=== PATIENT | male | born 1950 | race Caucasian/White ===

== ENCOUNTER 2023-10-28 13:40 | Emergency (ER) | payer OTHER, MEDICARE ==
[2023-10-28 14:01] VITALS: BP 142/68; PULSE 90
== END 2023-10-28 14:29 | disposition home or self-care (01) ==
LOC: LB.ED 13:40
DX: M72.2 Plantar fascial fibromatosis (principal); M19.90 Unspecified osteoarthritis, unspecified site; Z79.82 Long term (current) use of aspirin; Z79.899 Other long term (current) drug therapy
CPT/HCPCS: 73630-LT; 99283

== ENCOUNTER 2023-12-30 15:43 | Emergency (ER) | payer OTHER, MEDICARE ==
[2023-12-30] MEDS ORDERED: Sodium Chloride 0.9% 10 ML Syringe FLUSH PRN (16:15)
[2023-12-30 16:21] LABS: BASOPHILS ABSOLUTE AUTO 0.03 K/uL (0.02-0.10); BASOPHILS PERCENT AUTO 0.4 % (0.0-0.5); EOSINOPHILS ABSOLUTE AUTO 0.01 K/uL (0.04-0.40); EOSINOPHILS PERCENT AUTO 0.1 % (1.0-5.0); HEMATOCRIT 42.2 % (40.0-54.0); HEMOGLOBIN 14.2 g/dL (13.0-18.0); LYMPHOCYTES ABSOLUTE AUTO 0.73 K/uL (1.50-4.00); LYMPHOCYTES PERCENT AUTO 8.7 % (20.0-40.0); MEAN CORPUSCULAR HEMOGLOBIN 30.3 pg (27.0-32.0); MEAN CORPUSCULAR HGB CONC 33.6 g/dL (31.0-35.0); MEAN CORPUSCULAR VOLUME 90 fL (76-96); MONOCYTES ABSOLUTE AUTO 0.65 K/uL (0.20-0.80); MONOCYTES PERCENT AUTO 7.7 % (3.0-10.0); NEUTROPHILS ABSOLUTE AUTO 6.97 K/uL (2.00-7.50); NEUTROPHILS PERCENT AUTO 83.1 % (45.0-70.0); PLATELET COUNT,PLT 270 K/uL (150-400); RED BLOOD CELL COUNT 4.69 M/uL (4.50-6.50); RED CELL DISTRIBUTION WIDTH 13.5 % (11.0-16.0); WHITE BLOOD CELL COUNT,WBC 8.4 K/uL (4.0-11.0)
[2023-12-30 16:31] LABS: A/G RATIO 0.9 (0.8-2.0); ALANINE AMINOTRANSFERASE,ALT 41 U/L (12-78); ALBUMIN 3.6 g/dL (3.4-5.0); ALKALINE PHOSPHATASE 95 U/L (46-116); ANION GAP 13.9 mmol/L (5.0-15.0); ASPARTATE AMNIOTRANSFERASE,AST 18 U/L (15-37); BILIRUBIN TOTAL 0.5 mg/dL (0.0-1.0); BLOOD UREA NITROGEN,BUN 25 mg/dL (8-26); BUN/CREATININE RATIO 22.7 (6-25); CALCIUM 9.2 mg/dL (8.5-10.1); CARBON DIOXIDE,CO2 27.5 mmol/L (21.0-32.0); CHLORIDE,CL 100 mmol/L (98-107); ESTIMATED GFR 70 mL/min (>60); GLUCOSE RANDOM 128 mg/dL (74-100); POTASSIUM,K 4.4 mmol/L (3.5-5.1); PROTEIN TOTAL,TP 7.4 g/dL (6.4-8.2); SODIUM,NA 137 mmol/L (136-145)
[2023-12-30 16:54] LABS: INFLUENZA A NAA NEGATIVE (NEGATIVE); INFLUENZA B NAA NEGATIVE (NEGATIVE); RESPIRATORY SYNCYTIAL VIR NAA NEGATIVE (NEGATIVE)
[2023-12-30 16:57] LABS: CORONAVIRUS COVID-19 NAA POSITIVE (NEGATIVE)
[2023-12-30 21:10] VITALS: BP 143/70; PULSE 102
== END 2023-12-30 17:35 | disposition home or self-care (01) ==
LOC: LB.ED 15:43
DX: U07.1 COVID-19 (principal); Z79.899 Other long term (current) drug therapy
CPT/HCPCS: 0241U; 36415; 80053; 85025; 99285; A0425; A0428

== ENCOUNTER 2024-07-06 16:32 | Emergency (ER) | payer OTHER, MEDICARE ==
[2024-07-06] MEDS: Lidocaine 1% with EPINEPHrine 1:100,000 50 ML MDV INFILT ONE (16:59)
[2024-07-06 17:00] VITALS: BP 155/82; PULSE 79
[2024-07-06] MEDS: Bacitracin Oint 1 GM U/D Packet TOP ONE (17:08)
== END 2024-07-06 17:10 | disposition home or self-care (01) ==
LOC: LB.ED 16:32
DX: S61.412A Laceration without foreign body of left hand, initial encounter (principal); M19.90 Unspecified osteoarthritis, unspecified site; E03.9 Hypothyroidism, unspecified; E66.9 Obesity, unspecified; Z68.35 Body mass index [BMI] 35.0-35.9, adult; Z90.49 Acquired absence of other specified parts of digestive tract; Z79.82 Long term (current) use of aspirin; Z79.899 Other long term (current) drug therapy; W26.0XXA Contact with knife, initial encounter
CPT/HCPCS: 12001; 99283